=== PATIENT | male | born 1970 | race Caucasian/White ===

== ENCOUNTER 2020-03-13 06:03 | Day surgery (SDC) | payer OTHER, SELFPAY ==
--- NOTE | 2020-03-08 12:49 | EKG12_ITS ---
Test Reason : PRE OP Blood Pressure : / mmHG Vent. Rate : 086 BPM Atrial Rate : 086 BPM P-R Int : 144 ms QRS Dur : 090 ms QT Int : 356 ms P-R-T Axes : 065 -06 019 degrees QTc Int : 426 ms Normal sinus rhythm Normal ECG Confirmed by FIDEL GUEVARA, ROXANA ([id number]), metropolitan editor DAVE HENSLEY ([id number]) on 03/14/2020 9:44:50 AM Referred By: Dimas Gamboa Confirmed By:ROXANA PARRA MD
[2020-03-08 13:14] LABS: Hematocrit 42.8 % (40-54); Hemoglobin 14.9 g/dL (13.0-16.5); Mean Corp Hgb Conc 34.8 g/dL (32-36); Mean Corpuscular Hgb 32.9 pg (27.0-32.0); Mean Corpuscular Volume 94.5 fL (80-94); Mean Platelet Vol. 9.2 fl (6.2-12.0); Platelet Count 254 K/mm3 (150-450); RBC Distribution Width CV 12.5 % (11.6-14.6); RBC Distribution Width SD 43.3 fl (35.1-43.9); Red Blood Count 4.53 M/mm3 (4.6-6.2); White Blood Count 8.6 K/mm3 (4.4-11.0)
[2020-03-08 13:44] LABS: Anion Gap 6 (5-15); BUN 17 mg/dL (7-18); BUN/Creat Ratio 19.9 RATIO (10-20); Calcium,Total 9.5 mg/dL (8.5-10.1); Chloride 103 mmol/L (98-107); Creatinine, Serum 0.85 mg/dL (0.70-1.30); EST Glomerular Filtration Rate 101 mL/min (>60); Est Glom Filt Rate - Afr Amer 123 mL/min (>60); Glucose 132 mg/dL (74-106); Potassium 3.4 mmol/L (3.5-5.1); Sodium Level 137 mmol/L (136-145)
[2020-03-12 13:45] LABS: Probe Check PASS; Specimen Processing Control PASS
[2020-03-13 06:23] VITALS: BP 146/85; PULSE 85; RESP 18; TEMP 36.8; O2SAT 95; BMI 31.0
[2020-03-13] MEDS: Lactated Ringers 1,000 ML 100 ML IV (06:34)
[2020-03-13] MEDS: Ciprofloxacin 0.3% 2.5ml Bottle 1 DRP (08:45)
--- NOTE | 2020-03-13 08:45 | DCINST_ITS ---
Discharge Diet: No Restrictions Discharge Activity: Return to Normal Activity, - - dry ear precautions Additional Dressing/Incision Instructions:: Ear drops 5 drops right ear twice a day for 2 days (3 doses) Allergies/Adverse Reactions: Allergies codeine Adverse Reaction (Verified 03/06/20 15:26) Upset Stomach hydrocodone Adverse Reaction (Verified 03/06/20 15:26) Upset Stomach Medications to take at Discharge ALPRAZolam [Xanax] 1 mg PO QHS PRN PRN 03/06/20 Albuterol Inhaler [Ventolin Hfa (SP)] 1 - 2 puff INHALATION Q6H PRN PRN 03/06/20 Aspirin [Aspirin, Baby] 81 mg PO DAILY 03/06/20 Esomeprazole Mag Trihydrate [Nexium] 40 mg PO DAILY 03/06/20 Lisinopril/Hydrochlorothiazide [Lisinopril-Hctz 20-12.5 mg Tab] 1 ea PO DAILY 03/06/20 Rosuvastatin Calcium [Crestor] 20 mg PO QHS 03/06/20 Primary Care Physician: DR URMILA [Other] Test Results: Test results from this visit will be discussed in further detail at your follow- up appointment, if applicable.
--- NOTE | 2020-03-13 08:57 | PCM.OPRPT ---
Report of Operation Date of Procedure: 03/13/20 Pre-Operative Diagnosis: right chronic serous otitis media Post-Operative Diagnosis: same Surgery/Procedure Performed:: right myringotomy with tube Type of Anesthesia:: General, Local MAC Anesthesiologist: Dallas Eastman Estimated Blood Loss (mL): minimal Description of Procedure: The patient was taken to the operating room on 03/13/20. The patient was placed in the supine position on the operating room table. The patient was given sufficient local/mac anesthesia The operating microscope was used throughout the entire case. A speculum was inserted into the patient's right ear. Cerumen was removed using a curette. The Tympanic membrane was topically treated with phenol at the intended incision site. An incision was placed in the anterior inferior quadrant of the tympanic membrane. A T tube was placed without difficulty. Antibiotic drops were instilled into the patient's ear. The patient was then awoken. They were brought to the recovery room in stable condition. Blood loss minimal replacement none sponge needle and instrument counts correct at the end of the procedure.
[2020-03-13 09:06] VITALS: BP 119/82; BP 146/85; PULSE 97; RESP 16; TEMP 36.8; O2SAT 90
[2020-03-13 09:10] VITALS: BP 132/84; BP 146/85; PULSE 93; RESP 16; O2SAT 98
[2020-03-13 09:15] VITALS: BP 128/90; BP 146/85; PULSE 93; RESP 16; O2SAT 97
[2020-03-13 09:21] VITALS: BP 144/89; BP 146/85; PULSE 97; RESP 16; TEMP 36.7; O2SAT 97
[2020-03-13 09:31] VITALS: BP 146/85
== END 2020-03-13 09:32 | disposition home or self-care (01) ==
LOC: SDC 06:04 → AC 06:05
PROVIDERS: Anesthesiology; Referring Provider Otolaryngology; Visit Provider Otolaryngology
PROC: (CPT 69436; principal; 2020-03-13 08:25)
DX: H65.21 Chronic serous otitis media, right ear (principal); Z11.59 Encounter for screening for other viral diseases; I10 Essential (primary) hypertension; E78.00 Pure hypercholesterolemia, unspecified; K21.9 Gastro-esophageal reflux disease without esophagitis; F41.9 Anxiety disorder, unspecified; F17.210 Nicotine dependence, cigarettes, uncomplicated; Z79.82 Long term (current) use of aspirin; Z79.899 Other long term (current) drug therapy; I25.2 Old myocardial infarction
CPT/HCPCS: 69436; 36415; 80048; 85027; 87635; 93005; G2023; J7120; A4216; U0003